=== PATIENT | male | born 1990 | race Caucasian/White ===

== ENCOUNTER 2024-01-05 16:32 | Emergency (ER) | payer OTHER ==
[~2024-01-05] VITALS: Ht 188 cm; Wt 78.0 kg
[2024-01-05 16:39] VITALS: TEMP 98.5; O2SAT 100
[2024-01-05] MEDS ORDERED: IBUP-2029 MT (18:46)
[2024-01-05 19:01] VITALS: BP 126/74; PULSE 71; RESP 16; O2SAT 99
[2024-01-05] MEDS: IBUPROFEN 600MG TABLET PO ONE (19:01)
== END 2024-01-05 19:04 | disposition home or self-care (01) ==
LOC: ER 16:32
DX: M54.2 Cervicalgia (principal); M25.552 Pain in left hip; V49.9XXA Car occupant (driver) (passenger) injured in unspecified traffic accident, initial encounter; Y93.89 Activity, other specified; Y92.89 Other specified places as the place of occurrence of the external cause; Y99.8 Other external cause status
CPT/HCPCS: 99282